=== PATIENT | female | born 1990 | race African-American/Black ===

== ENCOUNTER 2025-04-01 20:53 | Emergency (ER) | payer SELFPAY ==
[~2025-04-01] VITALS: Ht 170.2 cm; Wt 126.0 kg
[2025-04-01 21:11] VITALS: O2SAT 99
[2025-04-01] MEDS ORDERED: IBUP-2030 MT (23:34)
[2025-04-01 23:42] VITALS: BP 158/98; PULSE 69; RESP 14; TEMP 36.7; O2SAT 100
[2025-04-01] MEDS ORDERED: OXYCODONE HCL/ACETAMINOPHEN 5/325MG TABLET PO ONE (23:45)
== END 2025-04-01 23:50 | disposition home or self-care (01) ==
LOC: ER 20:53
DX: S62.611A Displaced fracture of proximal phalanx of left index finger, initial encounter for closed fracture (principal); I10 Essential (primary) hypertension; W50.0XXA Accidental hit or strike by another person, initial encounter; Y93.89 Activity, other specified; Y92.89 Other specified places as the place of occurrence of the external cause; Y99.8 Other external cause status
CPT/HCPCS: 29130; 73110; 73130; 99284